=== PATIENT | male | born 1995 | race Caucasian/White ===

== ENCOUNTER 2016-11-08 15:19 | Emergency (ER) | payer OTHER ==
[2016-11-08] MEDS ORDERED: IBUPROFEN 600 MG TAB As Ordered ONE (15:39)
[2016-11-08 16:08] LABS: BASO % 0.4 % (0.0-1.0); EOS # 0.1 K/mm3 (0.0-0.50); EOS % 1.2 % (0.0-3.0); LARGE UNSTAINED CELL # 0.1 K/mm3 (0.0-0.4); LARGE UNSTAINED CELL % 1.5 % (0.0-4.0); LYMPH # 0.6 K/mm3 (1.5-6.5); MEAN CORPUSCULAR HEMOGLOBIN 30.3 pg (27.0-33.0); MEAN CORPUSCULAR HGB CONC 33.6 g/dl (32.0-36.5); MEAN CORPUSCULAR VOLUME 90.2 fl (80.0-96.0); MONO # 0.6 K/mm3 (0.0-0.8); MONO % 9.9 % (0.0-5.0); NEUTROPHILS # 4.6 K/mm3 (1.8-7.7); PLATELET COUNT, AUTOMATED 282 k/mm3 (150-450); RED CELL DISTRIBUTION WIDTH 12.3 % (11.5-14.5); WHITE BLOOD COUNT 5.8 K/mm3 (4.0-10.0)
--- NOTE | 2016-11-08 16:24 | REP ---
Chest x-ray: Two views. History: Fever . Comparison study: No comparisons . Findings: The lungs are well inflated and free of infiltrate. The pleural angles are sharp. The heart size is normal. Pulmonary vasculature is not increased. No significant bony abnormality is seen. Impression: Negative chest x-ray. Signed by Jorge Alberto Christensen MD 11/08/2016 04:15 P
[2016-11-08 16:29] LABS: CONTROL LINE MONO INT CTR LINE PRESENT
[2016-11-08 16:33] LABS: ALBUMIN 4.3 GM/DL (3.2-5.2); ALBUMIN/GLOBULIN RATIO 1.39 (1.00-1.93); ALKALINE PHOSPHATASE 76 U/L (45-117); ALT/SGPT 35 U/L (12-78); ANION GAP 8 MEQ/L (8-16); AST/SGOT 25 U/L (15-37); BILIRUBIN,DIRECT 0.1 MG/DL (0.0-0.2); BILIRUBIN,TOTAL 0.6 MG/DL (0.2-1.0); BLOOD UREA NITROGEN 12 MG/DL (7-18); CALCIUM LEVEL 9.1 MG/DL (8.5-10.1); CARBON DIOXIDE LEVEL 28 MEQ/L (21-32); CHLORIDE LEVEL 103 MEQ/L (98-107); CREATININE FOR GFR 1.52 MG/DL (0.70-1.30); GLOMERULAR FILTRATION RATE > 60.0 (>60); GLUCOSE, FASTING 95 MG/DL (70-105); SODIUM LEVEL 139 MEQ/L (136-145); TOTAL PROTEIN 7.4 GM/DL (6.4-8.2)
--- NOTE | 2016-11-08 18:21 | EDDOCDS ---
Physician Documentation [facility] Name: Ajay Jose Age: 21 yrs Sex: Male : 1995 Arrival Date: 11/08/2016 Time: 15:19 Bed 21 Private MD: Disposition: 11/08/16 17:58 Discharged to Home/Self Care. Impression: Fever, unspecified, Acute upper respiratory infection, unspecified. - Condition is Stable. - Discharge Instructions: Fever, Adult, Upper Respiratory Infection, Adult. - Medication Reconciliation, Local Pharmacy Hours, Work Release Form - 2 day form. - Follow up: Ziyad Ward [facility]; When: Tomorrow; Reason: Recheck today's complaints. Follow up: SANYA Rob; When: Tomorrow; Reason: Recheck today's complaints. - Problem is new. - Symptoms have improved. - Notes: You were seen in the ED for fever cough and congestion concerning for upper respiratory infection. Bloodwork showed slight decrease in kidney function which may be rechecked by your primary doctor. Otherwise, flu swab, mono screen, strep screen, urine tests and chest XRay showed no other acute findings. As you are feeling better you may return home. Rest, take Tylenol every 4 hours and Ibuprofen every 6 hours as needed for fever. Drink plenty of fluids. [place] to be seen for recheck and further care. Return to the ED for any uncontrolled fever, trouble breathing, not tolerating fluids, abdominal pain, rash, or any other concerns. Historical: - Allergies: no known allergies; - Home Meds: 1. none - PMHx: none; - PSHx: Tonsillectomy; - Social history: Smoking status: Patient states was never smoker of tobacco. No barriers to communication noted, The patient speaks fluent Bengali. - Family history: Not pertinent. - : The pt / caregiver states he / she is not on anticoagulants. Home medication list is obtained from the patient. - Exposure Risk Screening:: None identified. Vital Signs: 11/08 15:26 Weight 95.25 kg / 209.99 lbs; Height 6 ft. 1 in. (185.42 cm); mk4 15:30 BP 150 / 82 RA Sitting (auto/lg); Pulse 91; Resp 22; Temp 102.8; Pulse Ox 93% on R/A; bnb Pain 6/10; 15:34 bnb 16:39 BP 131 / 59 (auto/); kcs 16:39 Pulse 88 MON; Pulse Ox 97% ; kcs 16:54 BP 130 / 62 (auto/); kcs 16:54 Pulse 88 MON; Pulse Ox 96% ; kcs 17:09 BP 134 / 59 (auto/); kcs 17:09 Pulse 86 MON; Pulse Ox 96% ; kcs 17:24 BP 130 / 62 (auto/); kcs 17:24 Pulse 82 MON; Pulse Ox 97% ; kcs 17:39 BP 94 / 56 (auto/); kcs 17:39 Pulse 82 MON; Pulse Ox 97% ; kcs 17:47 BP 140 / 63; Pulse 89; Resp 20; Temp 100.2(O); Pulse Ox 96% on R/A; Pain 3/10; kcs 18:03 BP 120 / 72; Pulse 92; Resp 18; Temp 100.6(O); Pulse Ox 97% ; Pain 0/10; jml1 15:26 Body Mass Index 27.71 (95.25 kg, 185.42 cm) mk4 15:34 Pt stated that he is very dizzy. bnb MDM: 15:33 -Blood Culture (Adults Only), peripheral from different site, or from device/port/PICC br1 etc. if present ordered. 15:33 Drain Cleaner Plumber/Pulse Ox/q 15 min VS ordered. br1 15:33 -Blood Culture Ordered. EDMS 15:33 CBC with Diff Ordered. EDMS 15:33 Lactic Acid (Soriano tube on ice) Ordered. EDMS 15:33 Liver Profile Ordered. EDMS 15:33 MED Profile Ordered. EDMS 15:33 Urinalysis Ordered. EDMS 15:33 Urine Culture Ordered. EDMS 15:34 Monoscreen Ordered. EDMS 15:34 -Influenza A&B Rapid Antigen - Nose Ordered. EDMS 15:34 Ibuprofen 600 mg PO once ordered. br1 15:34 NS 0.9% 1000 ml IV at bolus once ordered. br1 15:34 Chest, 2 View (pa\E\lat) Ordered. EDMS 15:38 -Blood Culture (Adults Only), peripheral from different site, or from device/port/PICC deg etc. if present complete. 15:39 BLOOD CULTURES Ordered. EDMS 15:41 Strep Screen, Nursing ordered. br1 17:37 CBC with Diff Reviewed. br1 17:37 MED Profile Reviewed. br1 17:37 Urinalysis Reviewed. br1 17:37 Lactic Acid (Soriano tube on ice) Reviewed. br1 17:37 Liver Profile Reviewed. br1 17:37 -Influenza A&B Rapid Antigen - Nose Reviewed. br1 17:37 Monoscreen Reviewed. br1 17:37 Chest, 2 View (pa\E\lat) Reviewed. br1 17:39 Recheck Vital Signs, perform reassessment and enter into [employer] ordered. br1 17:43 Misc. Nursing Order ordered. br1 17:47 GATS (NEGATIVE STREP SCREEN) Ordered. EDMS 17:48 Financial registration complete. zo 17:54 [facility] Payment Agreement was scanned into [employer] and attached to record. zo Administered Medications: 15:45 Drug: Ibuprofen 600 mg [ibuprofen 600 mg tablet (1 tabs)] Route: PO; jf3 18:10 Follow up: Response: Temperature is decreased jf3 16:22 Drug: NS 0.9% 1000 ml [sodium chloride 0.9 % injection solution] Route: IV; Rate: jf3 bolus; Site: right antecubital; 18:20 Follow up: IV Status: Completed infusion; IV Intake: 1000ml jf3 Signatures: Dispatcher [employer] Nicole Lowery, Bander Operator Unit deg Odin Sánchez Brian, MD MD br1 Nimisha Farmer RN RN mk4 Edwardo Vincent RN RN jf3 The chart was reviewed and I authenticate all verbal orders and agree with the evaluation and treatment provided.Attachments: 17:54 [facility] Payment Agreement zo MTDD
--- NOTE | 2016-11-08 18:21 | EDDOCDS ---
Nurse's Notes [facility] Name: Ajay Jose Age: 21 yrs Sex: Male : 1995 Arrival Date: 11/08/2016 Time: 15:19 Bed 21 Private MD: Diagnosis: Fever, unspecified;Acute upper respiratory infection, unspecified Presentation: 11/08 15:22 Presenting complaint: Patient states: was seen at [facility] x2 today for fever and mk4 they didn't give him anything for his fever so he took theraflu an hour ago and went back to [facility] and his fever was 103 , diziness that is severe and cough, that is harsh non productive. Adult Sepsis Screening: The patient does not have new or worsening altered mentation. Patient's respiratory rate is less than 22. Systolic blood pressure is greater than 100. Patient has a qSOFA score of 0- Negative Sepsis Screen. Suicide/Homicide risk assessment- the patient denies having any suicidal and/or homicidal ideations and does not present with any other emotional, behavioral or mental health complaints. 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 Transition of care: patient was not received from another setting of care. 15:22 Acuity: ALYSE Level 3 mk4 15:22 Method Of Arrival: Ambulance mk4 Triage Assessment: 15:24 General: Appears in no apparent distress. Pain: Location: headache from fever. HIV mk4 screening NA for this visit Offered previously. Historical: - Allergies: no known allergies; - Home Meds: 1. none - PMHx: none; - PSHx: Tonsillectomy; - Social history: Smoking status: Patient states was never smoker of tobacco. No barriers to communication noted, The patient speaks fluent Albanian. - Family history: Not pertinent. - : The pt / caregiver states he / she is not on anticoagulants. Home medication list is obtained from the patient. - Exposure Risk Screening:: None identified. Screenin:00 Screening information is obtained from the patient. Fall risk: No risks identified. jf3 Assistance ADL's: requires no assistance with activities of daily living. Abuse/DV Screen: The patient / caregiver reports he/she is: not in a situation that causes fear, pain or injury. Nutritional screening: No deficits noted. Advance Directives: Currently, there is no health care proxy. There is no active DNR order. home support is adequate. Assessment: 16:00 Adult Sepsis Screening: The patient does not have new or worsening altered mentation. jf3 Patient has a respiratory rate of greater than or equal to 22 (1 point). Systolic blood pressure is greater than 100. Patient has a qSOFA score of 1- Negative Sepsis Screen. General: Appears in no apparent distress, comfortable, Behavior is appropriate for age, cooperative. Pain: Location: head Pain currently is 6 out of 10 on a pain scale. Neurological: Level of Consciousness is awake, alert, Oriented to person, place, time. Cardiovascular: Capillary refill < 3 seconds Heart tones S1 S2 present Chest pain is denied. Respiratory: Airway is patent Respiratory effort is even, unlabored, Respiratory pattern is regular, symmetrical, Breath sounds are clear bilaterally. Denies shortness of breath. GI: Abdomen is non- distended Bowel sounds present X 4 quads. Abd is soft and non tender X 4 quads. Denies diarrhea, nausea, vomiting. Derm: Skin is normal. 17:00 General: Appears in no apparent distress, comfortable, Behavior is cooperative, Pt jf3 resting supine on stretcher. Respirations easy and unlabored. Call light in reach. Will continue to monitor. Pain: Pain currently is 2 out of 10 on a pain scale. 18:19 Adult Sepsis Screening: The patient does not have new or worsening altered mentation. jf3 Patient's respiratory rate is less than 22. Systolic blood pressure is greater than 100. Patient has a qSOFA score of 0- Negative Sepsis Screen. General: Appears in no apparent distress, comfortable, Behavior is appropriate for age, cooperative. Pain: Pain currently is 3 out of 10 on a pain scale. Neurological: Level of Consciousness is awake, alert, Oriented to person, place, time. Cardiovascular: Capillary refill < 3 seconds. Respiratory: Airway is patent Respiratory effort is even, unlabored, Respiratory pattern is regular, symmetrical. Derm: Skin is pink, warm & dry. Vital Signs: 15:26 Weight 95.25 kg; Height 6 ft. 1 in. (185.42 cm); mk4 15:30 BP 150 / 82 RA Sitting (auto/lg); Pulse 91; Resp 22; Temp 102.8; Pulse Ox 93% on R/A; bnb Pain 6/10; 15:34 bnb 16:39 BP 131 / 59 (auto/); kcs 16:39 Pulse 88 MON; Pulse Ox 97% ; kcs 16:54 BP 130 / 62 (auto/); kcs 16:54 Pulse 88 MON; Pulse Ox 96% ; kcs 17:09 BP 134 / 59 (auto/); kcs 17:09 Pulse 86 MON; Pulse Ox 96% ; kcs 17:24 BP 130 / 62 (auto/); kcs 17:24 Pulse 82 MON; Pulse Ox 97% ; kcs 17:39 BP 94 / 56 (auto/); kcs 17:39 Pulse 82 MON; Pulse Ox 97% ; kcs 17:47 BP 140 / 63; Pulse 89; Resp 20; Temp 100.2(O); Pulse Ox 96% on R/A; Pain 3/10; kcs 18:03 BP 120 / 72; Pulse 92; Resp 18; Temp 100.6(O); Pulse Ox 97% ; Pain 0/10; jml1 15:26 Body Mass Index 27.71 (95.25 kg, 185.42 cm) mk4 15:34 Pt stated that he is very dizzy. bnb Vitals: 15:26 Log In Time N/A - ambulance arrival. mk4 17:47 Strep Screen is obtained and tested: Negative, a GATSNEG culture is ordered in [place] [id number] and sent. ED Course: 15:19 Patient visited by Nicole Myrick, Cpc. deg 15:19 Patient moved to Waiting deg 15:20 Patient moved to 21 kcs 15:21 Tacho Davis MD is Attending Physician. br1 15:24 Triage Initiated mk4 15:31 Patient visited by Apolonia Hickman PCA. bnb 15:41 Patient visited by Tacho Davis MD. br1 15:52 -Blood Culture Sent. jmb 15:52 CBC with Diff Sent. jmb 15:52 Liver Profile Sent. jmb 15:52 MED Profile Sent. jmb 16:00 The patient / caregiver is instructed regarding the plan of care and ED course. jf3 16:00 Inserted saline lock: 18 gauge in right antecubital area by Diana Hickman RN. No procedures jf3 done that require assistance. 16:22 Urinalysis Sent. jf3 16:22 Urine Culture Sent. jf3 16:24 Patient visited by Edwardo Vincent,OMERO. jf3 16:54 Chest, 2 View (pa\E\lat) Returned. EDMS 17:30 Patient visited by Mikael Gupta. jml1 17:47 Patient visited by Edwardo Vincent RN. jf3 17:48 GATS (NEGATIVE STREP SCREEN) Sent. jf3 17:54 Patient name changed from Ajay\S\\S\Jose\S\ to Ajay\S\ \S\Jose. EDMS 17:54 [facility] [place] was scanned into [employer] and attached to record. zo 17:56 Patient visited by Tacho Davis MD. br1 17:57 Ziyad Ward [facility] is Referral Physician. br1 17:58 Liane [facility] is Referral Physician. br1 18:04 Patient visited by Mikael Gupta. jml1 18:19 Discontinued IV lock intact, bleeding controlled, pressure dressing applied, No jf3 redness/swelling at site. Administered Medications: 15:45 Drug: Ibuprofen 600 mg [ibuprofen 600 mg tablet (1 tabs)] Route: PO; jf3 18:10 Follow up: Response: Temperature is decreased jf3 16:22 Drug: NS 0.9% 1000 ml [sodium chloride 0.9 % injection solution] Route: IV; Rate: jf3 bolus; Site: right antecubital; 18:20 Follow up: IV Status: Completed infusion; IV Intake: 1000ml jf3 Intake: 18:20 IV: 1000.00ml; Total: 1000.00ml. jf3 Order Results: Lab Order: CBC with Diff; SPEC'M 11/08/16 15:48 Test: WHITE BLOOD COUNT; Value: 5.8; Range: 4.0-10.0; Units: K/mm3; Status: F Test: RED BLOOD COUNT; Value: 4.89; Range: 4.30-6.10; Units: M/mm3; Status: F Test: HEMOGLOBIN; Value: 14.8; Range: 14.0-18.0; Units: g/dl; Status: F Test: HEMATOCRIT; Value: 44.1; Range: 42.0-52.0; Units: %; Status: F Test: MEAN CORPUSCULAR VOLUME; Value: 90.2; Range: 80.0-96.0; Units: fl; Status: F Test: MEAN CORPUSCULAR HEMOGLOBIN; Value: 30.3; Range: 27.0-33.0; Units: pg; Status: F Test: MEAN CORPUSCULAR HGB CONC; Value: 33.6; Range: 32.0-36.5; Units: g/dl; Status: F Test: RED CELL DISTRIBUTION WIDTH; Value: 12.3; Range: 11.5-14.5; Units: %; Status: F Test: PLATELET COUNT, AUTOMATED; Value: 282; Range: 150-450; Units: k/mm3; Status: F Test: NEUTROPHILS %; Value: 79.0; Range: 36.0-66.0; Abnormal: Above high normal; Units: %; Status: F Test: LYMPH %; Value: 8.0; Range: 24.0-44.0; Abnormal: Below low normal; Units: %; Status: F Test: MONO %; Value: 9.9; Range: 0.0-5.0; Abnormal: Above high normal; Units: %; Status: F Test: EOS %; Value: 1.2; Range: 0.0-3.0; Units: %; Status: F Test: BASO %; Value: 0.4; Range: 0.0-1.0; Units: %; Status: F Test: LARGE UNSTAINED CELL %; Value: 1.5; Range: 0.0-4.0; Units: %; Status: F Test: NEUTROPHILS #; Value: 4.6; Range: 1.8-7.7; Units: K/mm3; Status: F Test: LYMPH #; Value: 0.6; Range: 1.5-6.5; Abnormal: Below low normal; Units: K/mm3; Status: F Test: MONO #; Value: 0.6; Range: 0.0-0.8; Units: K/mm3; Status: F Test: EOS #; Value: 0.1; Range: 0.0-0.50; Units: K/mm3; Status: F Test: BASO #; Value: 0.0; Range: 0.0-0.2; Units: K/mm3; Status: F Test: LARGE UNSTAINED CELL #; Value: 0.1; Range: 0.0-0.4; Units: K/mm3; Status: F Lab Order: Lactic Acid (Soriano tube on ice); [facility] 11/08/16 16:11 Test: LACTIC ACID SEPSIS PROTOCOL; Value: 1.4; Range: 0.4-2.0; Units: MMOL/L; Status: F Lab Order: Liver Profile; [facility] 11/08/16 15:48 Test: AST/SGOT; Value: 25; Range: 15-37; Units: U/L; Status: F Test: ALT/SGPT; Value: 35; Range: 12-78; Units: U/L; Status: F Test: ALKALINE PHOSPHATASE; Value: 76; Range: 45-117; Units: U/L; Status: F Test: BILIRUBIN,TOTAL; Value: 0.6; Range: 0.2-1.0; Units: MG/DL; Status: F Test: BILIRUBIN,DIRECT; Value: 0.1; Range: 0.0-0.2; Units: MG/DL; Status: F Test: TOTAL PROTEIN; Value: 7.4; Range: 6.4-8.2; Units: GM/DL; Status: F Test: ALBUMIN; Value: 4.3; Range: 3.2-5.2; Units: GM/DL; Status: F Test: ALBUMIN/GLOBULIN RATIO; Value: 1.39; Range: 1.00-1.93; Status: F Lab Order: MED Profile; [facility] 11/08/16 15:48 Test: GLUCOSE, FASTING; Value: 95; Range: 70-105; Units: MG/DL; Status: F Test: BLOOD UREA NITROGEN; Value: 12; Range: 7-18; Units: MG/DL; Status: F Test: CREATININE FOR GFR; Value: 1.52; Range: 0.70-1.30; Abnormal: Above high normal; Units: MG/DL; Status: F Test: GLOMERULAR FILTRATION RATE; Value: > 60.0; Range: >60; Status: F Test: SODIUM LEVEL; Value: 139; Range: 136-145; Units: MEQ/L; Status: F Test: POTASSIUM SERUM; Value: 4.0; Range: 3.5-5.1; Units: MEQ/L; Status: F Test: CHLORIDE LEVEL; Value: 103; Range: 98-107; Units: MEQ/L; Status: F Test: CARBON DIOXIDE LEVEL; Value: 28; Range: 21-32; Units: MEQ/L; Status: F Test: ANION GAP; Value: 8; Range: 8-16; Units: MEQ/L; Status: F Test: CALCIUM LEVEL; Value: 9.1; Range: 8.5-10.1; Units: MG/DL; Status: F Test Note: ; Units are mL/min/1.73 m2 Chronic Kidney Disease Staging per NKF: Stage I & II GFR >=60 Normal to Mildly Decreased Stage III GFR 30-59 Moderately Decreased Stage IV GFR 15-29 Severely Decreased Stage V GFR <15 Very Little GFR Left ESRD GFR <15 on MUSICAL INSTRUMENTS ASSEMBLER Lab Order: Urinalysis; SPEC'M 11/08/16 16:14 Test: APPEARANCE, URINE; Value: CLEAR; Range: CLEAR; Status: F Test: COLOR, URINE; Value: YELLOW; Range: YELLOW; Status: F Test: PH,URINE; Value: 7.0; Range: 5.0-9.0; Units: UNITS; Status: F Test: SPECIFIC GRAVITY URINE AUTO; Value: 1.027; Range: 1.002-1.035; Status: F Test: PROTEIN, URINE AUTO; Value: 1+; Range: NEGATIVE; Abnormal: Above high normal; Units: mg/dL; Status: F Test: GLUCOSE, URINE (UA) AUTO; Value: NEGATIVE; Range: NEGATIVE; Units: mg/dL; Status: F Test: KETONE, URINE AUTO; Value: NEGATIVE; Range: NEGATIVE; Units: mg/dL; Status: F Test: UROBILINOGEN, URINE AUTO; Value: 4.0; Range: 0.0-2.0; Abnormal: Above high normal; Units: mg/dL; Status: F Test: BILIRUBIN, URINE AUTO; Value: NEGATIVE; Range: NEGATIVE; Status: F Test: NITRITE, URINE AUTO; Value: NEGATIVE; Range: NEGATIVE; Status: F Test: LEUKOCYTE ESTERASE, URINE AUTO; Value: NEGATIVE; Range: NEGATIVE; Status: F Test: BLOOD, URINE BLOOD; Value: NEGATIVE; Range: NEGATIVE; Status: F Test: WBC, URINE AUTO; Value: 1; Range: 0-3; Units: /HPF; Status: F Test: RBC, URINE AUTO; Value: 2; Range: 0-3; Units: /HPF; Status: F Test: BACTERIA, URINE AUTO; Value: NEGATIVE; Range: NEGATIVE; Status: F Test: SQUAMOUS EPITHELIAL CELL UR AU; Value: 0; Range: 0-6; Units: /HPF; Status: F Test: MUCUS, URINE; Value: SMALL; Range: NEGATIVE; Status: F Test: HYALINE CAST, URINE AUTO; Value: 0; Range: 0-1; Units: /LPF; Status: F Lab Order: -Influenza A&B Rapid Antigen - Nose; SPEC'M 11/08/16 16:11 Test: INFLUENZA A RAPID SCR by ICA; Value: INFLUENZA A RESULTS NEGATIVE; Status: F Test: INFLUENZA A RAPID SCR by ICA; Value: Comments:; Status: F Test: INFLUENZA B RAPID SCR by ICA; Value: INFLUENZA B RESULTS NEGATIVE; Status: F Test Note: ; The Influenza test is a direct rapid immunoassay for the qualitative detection of Influenza viral antigen. Cell culture (Viral Culture) testing should be considered to confirm NEGATIVE results and to assist in detecting other viruses that can provide similar clinical symptoms. Please contact the lab within 24 hours ([phone]) if confirmatory testing is desired. Lab Order: Monoscreen; SPEC'M 11/08/16 15:48 Test: MONO SCRN; Value: NEGATIVE; Range: NEGATIVE; Status: F Radiology Order: Chest, 2 View (pa\E\lat) Test: Chest, 2 View (pa\E\lat) REASON FOR EXAMINATION: fever; Chest x-ray: Two views.; ; History: Fever .; ; Comparison study: No comparisons .; ; Findings: The lungs are well inflated and free of infiltrate. The pleural; angles are sharp. The heart size is normal. Pulmonary vasculature is not; increased. No significant bony abnormality is seen.; ; Impression:; ; Negative chest x-ray.; ; ; Signed by; Jorge Alberto Christensen MD 11/08/2016 04:15 P; Outcome: 17:58 Discharge ordered by Provider. br1 18:20 Discharge Assessment: Patient awake, alert and oriented x 3. No cognitive and/or jf3 functional deficits noted. Patient verbalized understanding of disposition instructions. patient administered narcotics - no. The following High Risk Discharge criteria are identified: None. Discharged to home ambulatory, with friend. Condition: good. Discharge instructions given to patient, Instructed on discharge instructions, follow up and referral plans. Demonstrated understanding of instructions, Pt was receptive of discharge instructions/ teaching. No special radiology studies were completed. Property :Personal belongings accompany Pt. 18:21 Patient left the ED. jf3 Signatures: Dispatcher [employer] EDZahida Tejada, RN RN Nicole Knight, Cpc Unit deg Odin Sánchez Brian, MD MD br1 Mikael Gupta Joshua, RN RN bennyb Nimisha Farmer RN RN mk4 Edwardo Vincent RN RN jf3 Apolonia Hickman PCA NICU RN bndoris Corrections: (The following items were deleted from the chart) 15:26 15:22 Presenting complaint: Patient states: was seen at [facility] x2 today for fever mk4 and they didn't give him anything for his fever so he took theraflu an hour ago and went back to [facility] and his fever was 103 , diziness that is severe and cough mk4 MTDD
--- NOTE | 2016-11-10 19:21 | EDDOCDS ---
Nurse's Notes [facility] Name: Ajay Jose Age: 21 yrs Sex: Male : 1995 Arrival Date: 11/08/2016 Time: 15:19 Bed 21 Private MD: Diagnosis: Fever, unspecified;Acute upper respiratory infection, unspecified Presentation: 11/08 15:22 Presenting complaint: Patient states: was seen at [facility] x2 today for fever and mk4 they didn't give him anything for his fever so he took theraflu an hour ago and went back to [facility] and his fever was 103 , diziness that is severe and cough, that is harsh non productive. Adult Sepsis Screening: The patient does not have new or worsening altered mentation. Patient's respiratory rate is less than 22. Systolic blood pressure is greater than 100. Patient has a qSOFA score of 0- Negative Sepsis Screen. Suicide/Homicide risk assessment- the patient denies having any suicidal and/or homicidal ideations and does not present with any other emotional, behavioral or mental health complaints. 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 Transition of care: patient was not received from another setting of care. 15:22 Acuity: ALYSE Level 3 mk4 15:22 Method Of Arrival: Ambulance mk4 Triage Assessment: 15:24 General: Appears in no apparent distress. Pain: Location: headache from fever. HIV mk4 screening NA for this visit Offered previously. Historical: - Allergies: no known allergies; - Home Meds: 1. none - PMHx: none; - PSHx: Tonsillectomy; - Social history: Smoking status: Patient states was never smoker of tobacco. No barriers to communication noted, The patient speaks fluent Sinhala. - Family history: Not pertinent. - : The pt / caregiver states he / she is not on anticoagulants. Home medication list is obtained from the patient. - Exposure Risk Screening:: None identified. Screenin:00 Screening information is obtained from the patient. Fall risk: No risks identified. jf3 Assistance ADL's: requires no assistance with activities of daily living. Abuse/DV Screen: The patient / caregiver reports he/she is: not in a situation that causes fear, pain or injury. Nutritional screening: No deficits noted. Advance Directives: Currently, there is no health care proxy. There is no active DNR order. home support is adequate. Assessment: 16:00 Adult Sepsis Screening: The patient does not have new or worsening altered mentation. jf3 Patient has a respiratory rate of greater than or equal to 22 (1 point). Systolic blood pressure is greater than 100. Patient has a qSOFA score of 1- Negative Sepsis Screen. General: Appears in no apparent distress, comfortable, Behavior is appropriate for age, cooperative. Pain: Location: head Pain currently is 6 out of 10 on a pain scale. Neurological: Level of Consciousness is awake, alert, Oriented to person, place, time. Cardiovascular: Capillary refill < 3 seconds Heart tones S1 S2 present Chest pain is denied. Respiratory: Airway is patent Respiratory effort is even, unlabored, Respiratory pattern is regular, symmetrical, Breath sounds are clear bilaterally. Denies shortness of breath. GI: Abdomen is non- distended Bowel sounds present X 4 quads. Abd is soft and non tender X 4 quads. Denies diarrhea, nausea, vomiting. Derm: Skin is normal. 17:00 General: Appears in no apparent distress, comfortable, Behavior is cooperative, Pt jf3 resting supine on stretcher. Respirations easy and unlabored. Call light in reach. Will continue to monitor. Pain: Pain currently is 2 out of 10 on a pain scale. 18:19 Adult Sepsis Screening: The patient does not have new or worsening altered mentation. jf3 Patient's respiratory rate is less than 22. Systolic blood pressure is greater than 100. Patient has a qSOFA score of 0- Negative Sepsis Screen. General: Appears in no apparent distress, comfortable, Behavior is appropriate for age, cooperative. Pain: Pain currently is 3 out of 10 on a pain scale. Neurological: Level of Consciousness is awake, alert, Oriented to person, place, time. Cardiovascular: Capillary refill < 3 seconds. Respiratory: Airway is patent Respiratory effort is even, unlabored, Respiratory pattern is regular, symmetrical. Derm: Skin is pink, warm & dry. Vital Signs: 15:26 Weight 95.25 kg; Height 6 ft. 1 in. (185.42 cm); mk4 15:30 BP 150 / 82 RA Sitting (auto/lg); Pulse 91; Resp 22; Temp 102.8; Pulse Ox 93% on R/A; bnb Pain 6/10; 15:34 bnb 16:39 BP 131 / 59 (auto/); kcs 16:39 Pulse 88 MON; Pulse Ox 97% ; kcs 16:54 BP 130 / 62 (auto/); kcs 16:54 Pulse 88 MON; Pulse Ox 96% ; kcs 17:09 BP 134 / 59 (auto/); kcs 17:09 Pulse 86 MON; Pulse Ox 96% ; kcs 17:24 BP 130 / 62 (auto/); kcs 17:24 Pulse 82 MON; Pulse Ox 97% ; kcs 17:39 BP 94 / 56 (auto/); kcs 17:39 Pulse 82 MON; Pulse Ox 97% ; kcs 17:47 BP 140 / 63; Pulse 89; Resp 20; Temp 100.2(O); Pulse Ox 96% on R/A; Pain 3/10; kcs 18:03 BP 120 / 72; Pulse 92; Resp 18; Temp 100.6(O); Pulse Ox 97% ; Pain 0/10; jml1 15:26 Body Mass Index 27.71 (95.25 kg, 185.42 cm) mk4 15:34 Pt stated that he is very dizzy. bnb Vitals: 15:26 Log In Time N/A - ambulance arrival. mk4 17:47 Strep Screen is obtained and tested: Negative, a GATSNEG culture is ordered in [place] [address] and sent. ED Course: 15:19 Patient visited by Nicole Myrick, Carton Stenciler. deg 15:19 Patient moved to Waiting deg 15:20 Patient moved to 21 kcs 15:21 Tacho Davis MD is Attending Physician. br1 15:24 Triage Initiated mk4 15:31 Patient visited by Apolonia Hickman PCA. bnb 15:41 Patient visited by Tacho Davis MD. br1 15:52 -Blood Culture Sent. jmb 15:52 CBC with Diff Sent. jmb 15:52 Liver Profile Sent. jmb 15:52 MED Profile Sent. jmb 16:00 The patient / caregiver is instructed regarding the plan of care and ED course. jf3 16:00 Inserted saline lock: 18 gauge in right antecubital area by Diana Hickman RN. No procedures jf3 done that require assistance. 16:22 Urinalysis Sent. jf3 16:22 Urine Culture Sent. jf3 16:24 Patient visited by Edwardo Vincent,OMERO. jf3 16:54 Chest, 2 View (pa\E\lat) Returned. EDMS 17:30 Patient visited by Mikael Gupta. jml1 17:47 Patient visited by Edwardo Vincent RN. jf3 17:48 GATS (NEGATIVE STREP SCREEN) Sent. jf3 17:54 Patient name changed from Ajay\S\\S\Jose\S\ to Ajay\S\ \S\Jose. EDMS 17:54 [facility] Payment Agreement was scanned into [employer] and attached to record. zo 17:56 Patient visited by Tacho Davis MD. br1 17:57 Ziyad Ward [facility] is Referral Physician. br1 17:58 Liane JD [facility] is Referral Physician. br1 18:04 Patient visited by Mikael Gupta. jml1 18:19 Discontinued IV lock intact, bleeding controlled, pressure dressing applied, No jf3 redness/swelling at site. 11/09 12:40 T-Sheet-- Draft Copy was scanned into [employer] and attached to record. gb 12:40 PCR was scanned into [employer] and attached to record. gb Administered Medications: 11/08 15:45 Drug: Ibuprofen 600 mg [ibuprofen 600 mg tablet (1 tabs)] Route: PO; jf3 18:10 Follow up: Response: Temperature is decreased jf3 16:22 Drug: NS 0.9% 1000 ml [sodium chloride 0.9 % injection solution] Route: IV; Rate: jf3 bolus; Site: right antecubital; 18:20 Follow up: IV Status: Completed infusion; IV Intake: 1000ml jf3 Intake: 18:20 IV: 1000.00ml; Total: 1000.00ml. jf3 Order Results: Lab Order: -Blood Culture; SPEC'M 11/08/16 15:48 Test: BLOOD CULTURE; Value: No growth after 24 hours . All specimens observed; Status: F Test: BLOOD CULTURE; Value: for 5 days. Results final at that time.; Status: F Test: BLOOD CULTURE; Value: No Growth after 48 hours. All Specimens observed; Status: F Test: BLOOD CULTURE; Value: for 7 days. Results final at that time.; Status: F Lab Order: CBC with Diff; SPEC'M 11/08/16 15:48 Test: WHITE BLOOD COUNT; Value: 5.8; Range: 4.0-10.0; Units: K/mm3; Status: F Test: RED BLOOD COUNT; Value: 4.89; Range: 4.30-6.10; Units: M/mm3; Status: F Test: HEMOGLOBIN; Value: 14.8; Range: 14.0-18.0; Units: g/dl; Status: F Test: HEMATOCRIT; Value: 44.1; Range: 42.0-52.0; Units: %; Status: F Test: MEAN CORPUSCULAR VOLUME; Value: 90.2; Range: 80.0-96.0; Units: fl; Status: F Test: MEAN CORPUSCULAR HEMOGLOBIN; Value: 30.3; Range: 27.0-33.0; Units: pg; Status: F Test: MEAN CORPUSCULAR HGB CONC; Value: 33.6; Range: 32.0-36.5; Units: g/dl; Status: F Test: RED CELL DISTRIBUTION WIDTH; Value: 12.3; Range: 11.5-14.5; Units: %; Status: F Test: PLATELET COUNT, AUTOMATED; Value: 282; Range: 150-450; Units: k/mm3; Status: F Test: NEUTROPHILS %; Value: 79.0; Range: 36.0-66.0; Abnormal: Above high normal; Units: %; Status: F Test: LYMPH %; Value: 8.0; Range: 24.0-44.0; Abnormal: Below low normal; Units: %; Status: F Test: MONO %; Value: 9.9; Range: 0.0-5.0; Abnormal: Above high normal; Units: %; Status: F Test: EOS %; Value: 1.2; Range: 0.0-3.0; Units: %; Status: F Test: BASO %; Value: 0.4; Range: 0.0-1.0; Units: %; Status: F Test: LARGE UNSTAINED CELL %; Value: 1.5; Range: 0.0-4.0; Units: %; Status: F Test: NEUTROPHILS #; Value: 4.6; Range: 1.8-7.7; Units: K/mm3; Status: F Test: LYMPH #; Value: 0.6; Range: 1.5-6.5; Abnormal: Below low normal; Units: K/mm3; Status: F Test: MONO #; Value: 0.6; Range: 0.0-0.8; Units: K/mm3; Status: F Test: EOS #; Value: 0.1; Range: 0.0-0.50; Units: K/mm3; Status: F Test: BASO #; Value: 0.0; Range: 0.0-0.2; Units: K/mm3; Status: F Test: LARGE UNSTAINED CELL #; Value: 0.1; Range: 0.0-0.4; Units: K/mm3; Status: F Lab Order: Lactic Acid (Soriano tube on ice); [facility] 11/08/16 16:11 Test: LACTIC ACID SEPSIS PROTOCOL; Value: 1.4; Range: 0.4-2.0; Units: MMOL/L; Status: F Lab Order: Liver Profile; [facility] 11/08/16 15:48 Test: AST/SGOT; Value: 25; Range: 15-37; Units: U/L; Status: F Test: ALT/SGPT; Value: 35; Range: 12-78; Units: U/L; Status: F Test: ALKALINE PHOSPHATASE; Value: 76; Range: 45-117; Units: U/L; Status: F Test: BILIRUBIN,TOTAL; Value: 0.6; Range: 0.2-1.0; Units: MG/DL; Status: F Test: BILIRUBIN,DIRECT; Value: 0.1; Range: 0.0-0.2; Units: MG/DL; Status: F Test: TOTAL PROTEIN; Value: 7.4; Range: 6.4-8.2; Units: GM/DL; Status: F Test: ALBUMIN; Value: 4.3; Range: 3.2-5.2; Units: GM/DL; Status: F Test: ALBUMIN/GLOBULIN RATIO; Value: 1.39; Range: 1.00-1.93; Status: F Lab Order: MED Profile; [facility] 11/08/16 15:48 Test: GLUCOSE, FASTING; Value: 95; Range: 70-105; Units: MG/DL; Status: F Test: BLOOD UREA NITROGEN; Value: 12; Range: 7-18; Units: MG/DL; Status: F Test: CREATININE FOR GFR; Value: 1.52; Range: 0.70-1.30; Abnormal: Above high normal; Units: MG/DL; Status: F Test: GLOMERULAR FILTRATION RATE; Value: > 60.0; Range: >60; Status: F Test: SODIUM LEVEL; Value: 139; Range: 136-145; Units: MEQ/L; Status: F Test: POTASSIUM SERUM; Value: 4.0; Range: 3.5-5.1; Units: MEQ/L; Status: F Test: CHLORIDE LEVEL; Value: 103; Range: 98-107; Units: MEQ/L; Status: F Test: CARBON DIOXIDE LEVEL; Value: 28; Range: 21-32; Units: MEQ/L; Status: F Test: ANION GAP; Value: 8; Range: 8-16; Units: MEQ/L; Status: F Test: CALCIUM LEVEL; Value: 9.1; Range: 8.5-10.1; Units: MG/DL; Status: F Test Note: ; Units are mL/min/1.73 m2 Chronic Kidney Disease Staging per NKF: Stage I & II GFR >=60 Normal to Mildly Decreased Stage III GFR 30-59 Moderately Decreased Stage IV GFR 15-29 Severely Decreased Stage V GFR <15 Very Little GFR Left ESRD GFR <15 on [facility] Lab Order: Urinalysis; SPEC'M 11/08/16 16:14 Test: APPEARANCE, URINE; Value: CLEAR; Range: CLEAR; Status: F Test: COLOR, URINE; Value: YELLOW; Range: YELLOW; Status: F Test: PH,URINE; Value: 7.0; Range: 5.0-9.0; Units: UNITS; Status: F Test: SPECIFIC GRAVITY URINE AUTO; Value: 1.027; Range: 1.002-1.035; Status: F Test: PROTEIN, URINE AUTO; Value: 1+; Range: NEGATIVE; Abnormal: Above high normal; Units: mg/dL; Status: F Test: GLUCOSE, URINE (UA) AUTO; Value: NEGATIVE; Range: NEGATIVE; Units: mg/dL; Status: F Test: KETONE, URINE AUTO; Value: NEGATIVE; Range: NEGATIVE; Units: mg/dL; Status: F Test: UROBILINOGEN, URINE AUTO; Value: 4.0; Range: 0.0-2.0; Abnormal: Above high normal; Units: mg/dL; Status: F Test: BILIRUBIN, URINE AUTO; Value: NEGATIVE; Range: NEGATIVE; Status: F Test: NITRITE, URINE AUTO; Value: NEGATIVE; Range: NEGATIVE; Status: F Test: LEUKOCYTE ESTERASE, URINE AUTO; Value: NEGATIVE; Range: NEGATIVE; Status: F Test: BLOOD, URINE BLOOD; Value: NEGATIVE; Range: NEGATIVE; Status: F Test: WBC, URINE AUTO; Value: 1; Range: 0-3; Units: /HPF; Status: F Test: RBC, URINE AUTO; Value: 2; Range: 0-3; Units: /HPF; Status: F Test: BACTERIA, URINE AUTO; Value: NEGATIVE; Range: NEGATIVE; Status: F Test: SQUAMOUS EPITHELIAL CELL UR AU; Value: 0; Range: 0-6; Units: /HPF; Status: F Test: MUCUS, URINE; Value: SMALL; Range: NEGATIVE; Status: F Test: HYALINE CAST, URINE AUTO; Value: 0; Range: 0-1; Units: /LPF; Status: F Lab Order: Urine Culture; SPEC'M 11/08/16 16:14 Test: URINE CULTURE; Value: <EXTERNAL COMMENT eCWMed> FULL REPORT IN LAB NOTES (eCW and Medent).; Status: F Test: URINE CULTURE; Value: URINE CULTURE RESULT; Status: F Test: URINE CULTURE; Value: NO GROWTH CLINICAL SIGNIFICANCE 2 OR MORE ORGANISMS; Status: F Lab Order: -Influenza A&B Rapid Antigen - Nose; SPEC'M 11/08/16 16:11 Test: INFLUENZA A RAPID SCR by ICA; Value: INFLUENZA A RESULTS NEGATIVE; Status: F Test: INFLUENZA A RAPID SCR by ICA; Value: Comments:; Status: F Test: INFLUENZA B RAPID SCR by ICA; Value: INFLUENZA B RESULTS NEGATIVE; Status: F Test Note: ; The Influenza test is a direct rapid immunoassay for the qualitative detection of Influenza viral antigen. Cell culture (Viral Culture) testing should be considered to confirm NEGATIVE results and to assist in detecting other viruses that can provide similar clinical symptoms. Please contact the lab within 24 hours [phone] if confirmatory testing is desired. Lab Order: Monoscreen; SPEC'M 11/08/16 15:48 Test: MONO SCRN; Value: NEGATIVE; Range: NEGATIVE; Status: F Lab Order: BLOOD CULTURES; SPEC'M 11/08/16 16:11 Test: BLOOD CULTURE; Value: No growth after 24 hours . All specimens observed; Status: F Test: BLOOD CULTURE; Value: for 5 days. Results final at that time.; Status: F Test: BLOOD CULTURE; Value: No Growth after 48 hours. All Specimens observed; Status: F Test: BLOOD CULTURE; Value: for 7 days. Results final at that time.; Status: F Lab Order: GATS (NEGATIVE STREP SCREEN); SPEC'M 11/08/16 15:47 Test: GATS CULTURE (NEG STREP SCR); Value: GATS RESULT NEGATIVE FOR STREP PYOGENES (GROUP A); Status: F Test: GATS CULTURE (NEG STREP SCR); Value: <EXTERNAL COMMENT eCWMed> FULL REPORT IN LAB NOTES (eCW and Medent).; Status: F Radiology Order: Chest, 2 View (pa\E\lat) Test: Chest, 2 View (pa\E\lat) REASON FOR EXAMINATION: fever; Chest x-ray: Two views.; ; History: Fever .; ; Comparison study: No comparisons .; ; Findings: The lungs are well inflated and free of infiltrate. The pleural; angles are sharp. The heart size is normal. Pulmonary vasculature is not; increased. No significant bony abnormality is seen.; ; Impression:; ; Negative chest x-ray.; ; ; Signed by; Jorge Alberto Christensen MD 11/08/2016 04:15 P; Outcome: 17:58 Discharge ordered by Provider. br1 18:20 Discharge Assessment: Patient awake, alert and oriented x 3. No cognitive and/or jf3 functional deficits noted. Patient verbalized understanding of disposition instructions. patient administered narcotics - no. The following High Risk Discharge criteria are identified: None. Discharged to home ambulatory, with friend. Condition: good. Discharge instructions given to patient, Instructed on discharge instructions, follow up and referral plans. Demonstrated understanding of instructions, Pt was receptive of discharge instructions/ teaching. No special radiology studies were completed. Property :Personal belongings accompany Pt. 18:21 Patient left the ED. jf3 Signatures: Dispatcher [employer] EDMS Zahida Dominguez RN RN Nicole Knight, Carton Stenciler Unit deg Awilda Marx, Reg Reg Odin Hager Brian, MD MD br1 Mikael Guptal1 Yosef Hickman,RN RN jmb Nimisha Farmer RN RN mk4 Edwardo Vincent RN RN jf3 Apolonia Hickman PCA [employer]UL [employer] P[employer]ER bnb Corrections: (The following items were deleted from the chart) 15:26 15:22 Presenting complaint: Patient states: was seen at [place] [address] today for fever mk4 and they didn't give him anything for his fever so he took theraflu an hour ago and went back to [facility] and his fever was 103 , diziness that is severe and cough mk4 Chart Complete MTDD
--- NOTE | 2016-11-10 19:21 | EDDOCDS ---
Physician Documentation [facility] Name: Ajay Jose Age: 21 yrs Sex: Male : 1995 Arrival Date: 11/08/2016 Time: 15:19 Bed 21 Private MD: Disposition: 11/08/16 17:58 Discharged to Home/Self Care. Impression: Fever, unspecified, Acute upper respiratory infection, unspecified. - Condition is Stable. - Discharge Instructions: Fever, Adult, Upper Respiratory Infection, Adult. - Medication Reconciliation, Local Pharmacy Hours, Work Release Form - 2 day form. - Follow up: Ziyad Ward [facility]; When: Tomorrow; Reason: Recheck today's complaints. Follow up: SANYA Rob; When: Tomorrow; Reason: Recheck today's complaints. - Problem is new. - Symptoms have improved. - Notes: You were seen in the ED for fever cough and congestion concerning for upper respiratory infection. Bloodwork showed slight decrease in kidney function which may be rechecked by your primary doctor. Otherwise, flu swab, mono screen, strep screen, urine tests and chest XRay showed no other acute findings. As you are feeling better you may return home. Rest, take Tylenol every 4 hours and Ibuprofen every 6 hours as needed for fever. Drink plenty of fluids. [place] to be seen for recheck and further care. Return to the ED for any uncontrolled fever, trouble breathing, not tolerating fluids, abdominal pain, rash, or any other concerns. Historical: - Allergies: no known allergies; - Home Meds: 1. none - PMHx: none; - PSHx: Tonsillectomy; - Social history: Smoking status: Patient states was never smoker of tobacco. No barriers to communication noted, The patient speaks fluent Turkmen. - Family history: Not pertinent. - : The pt / caregiver states he / she is not on anticoagulants. Home medication list is obtained from the patient. - Exposure Risk Screening:: None identified. Vital Signs: 11/08 15:26 Weight 95.25 kg / 209.99 lbs; Height 6 ft. 1 in. (185.42 cm); mk4 15:30 BP 150 / 82 RA Sitting (auto/lg); Pulse 91; Resp 22; Temp 102.8; Pulse Ox 93% on R/A; bnb Pain 6/10; 15:34 bnb 16:39 BP 131 / 59 (auto/); kcs 16:39 Pulse 88 MON; Pulse Ox 97% ; kcs 16:54 BP 130 / 62 (auto/); kcs 16:54 Pulse 88 MON; Pulse Ox 96% ; kcs 17:09 BP 134 / 59 (auto/); kcs 17:09 Pulse 86 MON; Pulse Ox 96% ; kcs 17:24 BP 130 / 62 (auto/); kcs 17:24 Pulse 82 MON; Pulse Ox 97% ; kcs 17:39 BP 94 / 56 (auto/); kcs 17:39 Pulse 82 MON; Pulse Ox 97% ; kcs 17:47 BP 140 / 63; Pulse 89; Resp 20; Temp 100.2(O); Pulse Ox 96% on R/A; Pain 3/10; kcs 18:03 BP 120 / 72; Pulse 92; Resp 18; Temp 100.6(O); Pulse Ox 97% ; Pain 0/10; jml1 15:26 Body Mass Index 27.71 (95.25 kg, 185.42 cm) mk4 15:34 Pt stated that he is very dizzy. bnb MDM: 15:33 -Blood Culture (Adults Only), peripheral from different site, or from device/port/PICC br1 etc. if present ordered. 15:33 Clean In Places Operator/Pulse Ox/q 15 min VS ordered. br1 15:33 -Blood Culture Ordered. EDMS 15:33 CBC with Diff Ordered. EDMS 15:33 Lactic Acid (Soriano tube on ice) Ordered. EDMS 15:33 Liver Profile Ordered. EDMS 15:33 MED Profile Ordered. EDMS 15:33 Urinalysis Ordered. EDMS 15:33 Urine Culture Ordered. EDMS 15:34 Monoscreen Ordered. EDMS 15:34 -Influenza A&B Rapid Antigen - Nose Ordered. EDMS 15:34 Ibuprofen 600 mg PO once ordered. br1 15:34 NS 0.9% 1000 ml IV at bolus once ordered. br1 15:34 Chest, 2 View (pa\E\lat) Ordered. EDMS 15:38 -Blood Culture (Adults Only), peripheral from different site, or from device/port/PICC deg etc. if present complete. 15:39 BLOOD CULTURES Ordered. EDMS 15:41 Strep Screen, Nursing ordered. br1 17:37 CBC with Diff Reviewed. br1 17:37 MED Profile Reviewed. br1 17:37 Urinalysis Reviewed. br1 17:37 Lactic Acid (Soriano tube on ice) Reviewed. br1 17:37 Liver Profile Reviewed. br1 17:37 -Influenza A&B Rapid Antigen - Nose Reviewed. br1 17:37 Monoscreen Reviewed. br1 17:37 Chest, 2 View (pa\E\lat) Reviewed. br1 17:39 Recheck Vital Signs, perform reassessment and enter into [employer] ordered. br1 17:43 Misc. Nursing Order ordered. br1 17:47 GATS (NEGATIVE STREP SCREEN) Ordered. EDMS 17:48 Financial registration complete. zo 17:54 [facility] Payment Agreement was scanned into [employer] and attached to record. zo 11/09 12:40 T-Sheet-- Draft Copy was scanned into [employer] and attached to record. gb 12:40 PCR was scanned into [employer] and attached to record. gb Administered Medications: 11/08 15:45 Drug: Ibuprofen 600 mg [ibuprofen 600 mg tablet (1 tabs)] Route: PO; jf3 18:10 Follow up: Response: Temperature is decreased jf3 16:22 Drug: NS 0.9% 1000 ml [sodium chloride 0.9 % injection solution] Route: IV; Rate: jf3 bolus; Site: right antecubital; 18:20 Follow up: IV Status: Completed infusion; IV Intake: 1000ml jf3 Signatures: Dispatcher [employer] EDNicole Angel, Shopping Investigator Unit deg Awilda Marx, Reg Reg Odin Hager Brian, MD MD br1 Nimisha Farmer RN RN mk4 Edwardo Vincent RN RN jf3 The chart was reviewed and I authenticate all verbal orders and agree with the evaluation and treatment provided.Attachments: 17:54 [facility] Payment Agreement zo 11/09 12:40 T-Sheet-- Draft Copy gb Chart Complete MTDD
--- NOTE | 2016-11-10 19:21 | EDDOCDS ---
Physician Documentation [facility] Name: Ajay Jose Age: 21 yrs Sex: Male : 1995 Arrival Date: 11/08/2016 Time: 15:19 Bed 21 Private MD: Disposition: 11/08/16 17:58 Discharged to Home/Self Care. Impression: Fever, unspecified, Acute upper respiratory infection, unspecified. - Condition is Stable. - Discharge Instructions: Fever, Adult, Upper Respiratory Infection, Adult. - Medication Reconciliation, Local Pharmacy Hours, Work Release Form - 2 day form. - Follow up: Ziyad Ward [facility]; When: Tomorrow; Reason: Recheck today's complaints. Follow up: SANYA Rob; When: Tomorrow; Reason: Recheck today's complaints. - Problem is new. - Symptoms have improved. - Notes: You were seen in the ED for fever cough and congestion concerning for upper respiratory infection. Bloodwork showed slight decrease in kidney function which may be rechecked by your primary doctor. Otherwise, flu swab, mono screen, strep screen, urine tests and chest XRay showed no other acute findings. As you are feeling better you may return home. Rest, take Tylenol every 4 hours and Ibuprofen every 6 hours as needed for fever. Drink plenty of fluids. [place] be seen for recheck and further care. Return to the ED for any uncontrolled fever, trouble breathing, not tolerating fluids, abdominal pain, rash, or any other concerns. Historical: - Allergies: no known allergies; - Home Meds: 1. none - PMHx: none; - PSHx: Tonsillectomy; - Social history: Smoking status: Patient states was never smoker of tobacco. No barriers to communication noted, The patient speaks fluent Czech. - Family history: Not pertinent. - : The pt / caregiver states he / she is not on anticoagulants. Home medication list is obtained from the patient. - Exposure Risk Screening:: None identified. Vital Signs: 11/08 15:26 Weight 95.25 kg / 209.99 lbs; Height 6 ft. 1 in. (185.42 cm); mk4 15:30 BP 150 / 82 RA Sitting (auto/lg); Pulse 91; Resp 22; Temp 102.8; Pulse Ox 93% on R/A; bnb Pain 6/10; 15:34 bnb 16:39 BP 131 / 59 (auto/); kcs 16:39 Pulse 88 MON; Pulse Ox 97% ; kcs 16:54 BP 130 / 62 (auto/); kcs 16:54 Pulse 88 MON; Pulse Ox 96% ; kcs 17:09 BP 134 / 59 (auto/); kcs 17:09 Pulse 86 MON; Pulse Ox 96% ; kcs 17:24 BP 130 / 62 (auto/); kcs 17:24 Pulse 82 MON; Pulse Ox 97% ; kcs 17:39 BP 94 / 56 (auto/); kcs 17:39 Pulse 82 MON; Pulse Ox 97% ; kcs 17:47 BP 140 / 63; Pulse 89; Resp 20; Temp 100.2(O); Pulse Ox 96% on R/A; Pain 3/10; kcs 18:03 BP 120 / 72; Pulse 92; Resp 18; Temp 100.6(O); Pulse Ox 97% ; Pain 0/10; jml1 15:26 Body Mass Index 27.71 (95.25 kg, 185.42 cm) mk4 15:34 Pt stated that he is very dizzy. bnb MDM: 15:33 -Blood Culture (Adults Only), peripheral from different site, or from device/port/PICC br1 etc. if present ordered. 15:33 Experimental Mechanic Spacecraft/Pulse Ox/q 15 min VS ordered. br1 15:33 -Blood Culture Ordered. EDMS 15:33 CBC with Diff Ordered. EDMS 15:33 Lactic Acid (Soriano tube on ice) Ordered. EDMS 15:33 Liver Profile Ordered. EDMS 15:33 MED Profile Ordered. EDMS 15:33 Urinalysis Ordered. EDMS 15:33 Urine Culture Ordered. EDMS 15:34 Monoscreen Ordered. EDMS 15:34 -Influenza A&B Rapid Antigen - Nose Ordered. EDMS 15:34 Ibuprofen 600 mg PO once ordered. br1 15:34 NS 0.9% 1000 ml IV at bolus once ordered. br1 15:34 Chest, 2 View (pa\E\lat) Ordered. EDMS 15:38 -Blood Culture (Adults Only), peripheral from different site, or from device/port/PICC deg etc. if present complete. 15:39 BLOOD CULTURES Ordered. EDMS 15:41 Strep Screen, Nursing ordered. br1 17:37 CBC with Diff Reviewed. br1 17:37 MED Profile Reviewed. br1 17:37 Urinalysis Reviewed. br1 17:37 Lactic Acid (Soriano tube on ice) Reviewed. br1 17:37 Liver Profile Reviewed. br1 17:37 -Influenza A&B Rapid Antigen - Nose Reviewed. br1 17:37 Monoscreen Reviewed. br1 17:37 Chest, 2 View (pa\E\lat) Reviewed. br1 17:39 Recheck Vital Signs, perform reassessment and enter into [employer] ordered. br1 17:43 Misc. Nursing Order ordered. br1 17:47 GATS (NEGATIVE STREP SCREEN) Ordered. EDMS 17:48 Financial registration complete. zo 17:54 [facility] Payment Agreement was scanned into [employer] and attached to record. zo 11/09 12:40 T-Sheet-- Draft Copy was scanned into [employer] and attached to record. gb 12:40 PCR was scanned into [employer] and attached to record. gb Administered Medications: 11/08 15:45 Drug: Ibuprofen 600 mg [ibuprofen 600 mg tablet (1 tabs)] Route: PO; jf3 18:10 Follow up: Response: Temperature is decreased jf3 16:22 Drug: NS 0.9% 1000 ml [sodium chloride 0.9 % injection solution] Route: IV; Rate: jf3 bolus; Site: right antecubital; 18:20 Follow up: IV Status: Completed infusion; IV Intake: 1000ml jf3 Signatures: Dispatcher [employer] EDNicole Angel, Cerner Analyst Unit deg Awilda Marx, Reg Reg Odin Hager Brian, MD MD br1 Nimisha Farmer RN RN mk4 Edwardo Vincent RN RN jf3 The chart was reviewed and I authenticate all verbal orders and agree with the evaluation and treatment provided.Attachments: 17:54 [facility] Payment Agreement zo 11/09 12:40 T-Sheet-- Draft Copy gb Chart Complete MTDD
== END 2016-11-08 18:21 | disposition home or self-care (01) ==
LOC: M ED 15:19
DX: J06.9 Acute upper respiratory infection, unspecified (principal)

== ENCOUNTER → 2019-02-27 | Outpatient (CLI) | payer OTHER ==
--- NOTE | 2019-02-27 17:14 | REP ---
CT lumbar spine without contrast History: Back pain There is no disc bulge or herniation at the L1-2 through L3-4 levels. The nerves exit the neural foramina without compression. A diffuse disc bulge is present at the L4-5 level. There is minimal compression of the thecal sac. The L4 nerves exit the neural foramina without compression. There is no disc bulge or herniation at the L5-L1 level. A left L5 pars defect is present. There is no spondylolisthesis. The L5 nerves exit the neural foramina without compression. The the L1-2 and L4-5 vertebral discs are decreased in height consistent with disc degeneration. Impression: 1. Diffuse disc bulge at the L4-5 level with minimal thecal sac compression. 2. There is a left L5 pars defect. There is no spondylolisthesis. Electronically Signed by Raúl Hedrick MD 02/27/2019 05:05 P
== END ==
LOC: M RAD 16:33
PROVIDERS: ATTEND Physician Assistant
DX: M51.26 Other intervertebral disc displacement, lumbar region (principal)